=== PATIENT | male | born 1970 | race Caucasian/White ===

== ENCOUNTER 2020-02-01 12:10 | Observation (INO) | payer BC ==
[2020-02-01] MEDS ORDERED: Morphine 2 MG/ML SYRINGE IVPUSH PRN (12:32)
[2020-02-01] MEDS ORDERED: Ondansetron 4 MG/2 ML SDV IVPUSH PRN (12:32)
[2020-02-01] MEDS ORDERED: Sodium Chloride 0.9% 1,000 ML IV SCH (12:45)
[2020-02-01] MEDS ORDERED: Sodium Chloride 0.9% 500 ML IV SCH (12:45)
[2020-02-01] MEDS ORDERED: Iopamidol 755 Mg/ML 100 ML Bottle IV ONE (14:22)
[2020-02-01] MEDS ORDERED: Diatrizoate Meglumine/Diatrizoate Sodium 37% 30 ML Bottle PO ONE (14:22)
[2020-02-01] MEDS ORDERED: Sodium Chloride 0.9% 50 ML IV SCH (14:30)
[2020-02-01 14:36] VITALS: BP 125/82; PULSE 70
--- NOTE | 2020-02-01 15:38 | CT ---
[id number] CT/CT Abdomen Pelvis W IV EXAM: CT Abdomen Pelvis W IV CLINICAL DATA: ABDOMINAL PAIN COMPARISON: NO PREVIOUS SIMILAR EXAM IS AVAILABLE. FINDINGS: The liver and spleen are unremarkable. The kidneys and adrenals show no acute abnormality. There are small parapelvic cysts of the right kidney The aorta and pancreas are within normal limits. There is no bowel distention. There is no bowel wall thickening either. There is no free fluid or free air. There is no adenopathy. The pelvis shows no mass, free fluid, abscess, inflammatory change, or adenopathy. The gallbladder and appendix are unremarkable IMPRESSION: NO ACUTE PROCESS. Jalil Burton MD 02/01/20 [id number] Thank you for allowing us to participate in the care of your patient.
== END 2020-02-01 18:05 | disposition home or self-care (01) ==
LOC: KA.MS 12:10 → UNDOADMOB 12:15 → KA.MS 12:15
PROVIDERS: ADMIT Nurse Practitioner Family; ATTEND Family Medicine
DX: R19.7 Diarrhea, unspecified (principal); R14.0 Abdominal distension (gaseous); K64.9 Unspecified hemorrhoids; R71.8 Other abnormality of red blood cells; R79.89 Other specified abnormal findings of blood chemistry; Z20.828 Contact with and (suspected) exposure to other viral communicable diseases
CPT/HCPCS: 74177; 96360; 96361; G0378; J7030; J7040; J7050; Q9963; Q9967; U0002

== ENCOUNTER 2024-01-07 09:42 | Emergency (ER) | payer BC ==
[2024-01-07] MEDS ORDERED: Sodium Chloride 0.9% 10 ML Syringe FLUSH PRN (09:56)
[2024-01-07 10:09] LABS: BASOPHILS ABSOLUTE AUTO 0.04 10^3/uL (0.00-0.10); BASOPHILS PERCENT AUTO 0.4 % (0.0-1.0); EOSINOPHILS ABSOLUTE AUTO 0.17 10^3/uL (0.10-0.30); EOSINOPHILS PERCENT AUTO 1.7 % (1.0-3.0); HEMATOCRIT 48.4 % (40.0-52.0); HEMOGLOBIN 16.4 g/dL (13.0-17.0); IMMATURE GRAN ABSOLUTE AUTO 0.11 10^3/uL (0.00-0.50); IMMATURE GRAN PERCENT AUTO 1.1 % (0.0-5.0); LYMPHOCYTES ABSOLUTE AUTO 2.13 10^3/uL (1.00-4.00); LYMPHOCYTES PERCENT AUTO 21.1 % (20.0-40.0); MEAN CORPUSCULAR HEMOGLOBIN 29.3 pg (27.0-31.0); MEAN CORPUSCULAR HGB CONC 33.9 g/dL (32.0-36.0); MEAN CORPUSCULAR VOLUME 86.4 fL (82.0-92.0); MONOCYTES ABSOLUTE AUTO 0.64 10^3/uL (0.10-0.80); MONOCYTES PERCENT AUTO 6.3 % (2.0-8.0); NEUTROPHILS ABSOLUTE AUTO 6.99 10^3/uL (2.50-7.00); NEUTROPHILS PERCENT AUTO 69.4 % (50.0-70.0); PLATELET COUNT,PLT 175 10^3/uL (150-400); RED CELL DISTRIBUTION WIDTH 12.6 % (11.5-14.5); WHITE BLOOD CELL COUNT,WBC 10.08 10^3/uL (5.00-10.00)
[2024-01-07] MEDS: Lidocaine/Epineph/Tetracaine 3 ML Syringe TOP ONE (10:14)
[2024-01-07] MEDS: Diphtheria,Pertussis(Acell),Tetanus Vaccine 0.5 ML Syringe IM ONE (10:24)
[2024-01-07] MEDS: Lidocaine 2% with EPINEPHrine 1:100,000 20 ML MDV INJECT ONE (10:34)
[2024-01-07 10:50] LABS: ALANINE AMINOTRANSFERASE,ALT 35 U/L (14-63); ALBUMIN 3.63 g/dL (3.40-5.00); ALKALINE PHOSPHATASE 78 U/L (46-116); ANION GAP 15.8 mmol/L (5-15); ASPARTATE AMNIOTRANSFERASE,AST 44 U/L (15-37); BLOOD UREA NITROGEN,BUN 27 mg/dL (7-18); CALCIUM 8.4 mg/dL (8.7-10.3); CARBON DIOXIDE,CO2 23.8 mmol/L (21.0-32.0); CHLORIDE,CL 106 mmol/L (98-107); CREATININE 1.19 mg/dL (0.51-1.17); GLUCOSE RANDOM 137 mg/dL (70-140); PROTEIN TOTAL,TP 7.2 g/dL (6.4-8.2); SODIUM,NA 141 mmol/L (136-145)
[2024-01-07 10:51] LABS: ESTIMATED GFR 72 mL/min (>=60); POTASSIUM,K 4.6 mmol/L (3.5-5.1)
[2024-01-07 12:30] VITALS: BP 116/80; PULSE 85
== END 2024-01-07 11:55 ==
LOC: KA.ED 09:42
DX: S32.001A Stable burst fracture of unspecified lumbar vertebra, initial encounter for closed fracture (principal); S20.211A Contusion of right front wall of thorax, initial encounter; S80.811A Abrasion, right lower leg, initial encounter; R20.2 Paresthesia of skin; Z23 Encounter for immunization; Z88.8 Allergy status to other drugs, medicaments and biological substances; W19.XXXA Unspecified fall, initial encounter
CPT/HCPCS: 36415; 51702; 70450; 71250; 72125; 74176; 80053; 82550; 83605; 84484; 85025; 90471; 90715; 99285; A9270-GY; J3490